=== PATIENT | male | born 2000 | race Two or more races ===

== ENCOUNTER 2024-10-10 19:12 | Emergency (ER) | payer MEDICAID, SELFPAY ==
[2024-10-10 19:14] VITALS: BMI 27.4
[2024-10-10 19:23] VITALS: BP 126/78; PULSE 91; RESP 18; TEMP 37.3; O2SAT 99
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
[2024-10-10 20:51] LABS: Basophils % (Auto) 0 % (0-2.5); Eosinophils # (Auto) 0.1 Thou/mm3 (0.0-0.5); Eosinophils % (Auto) 1 % (0-10); Hematocrit 45.8 % (41.0-53.0); Hemoglobin 16.4 g/dL (13.5-16.0); Immature Granulocytes % (Auto) 0 % (0-0); Immature Granulocytes Auto 0.01 Thou/mm3 (0.00-0.00); Lymphocytes # (Auto) 2.5 Thou/mm3 (1.0-4.8); Lymphocytes % (Auto) 32 % (10-50); Mean Corpuscular HGB Conc 35.8 g/dl (31.0-37.0); Mean Corpuscular Hemoglobin 31.2 pg (25.0-35.0); Mean Corpuscular Volume 87 fL (80-100); Monocytes # (Auto) 0.6 Thou/mm3 (0.0-0.8); Monocytes % (Auto) 8 % (0-12); Neutrophils # (Auto) 4.7 Thou/mm3 (1.8-7.7); Neutrophils % (Auto) 59 % (37-80); Nucleated Red Blood Cell % 0 /100 WBC (0); Platelet Count 273 Thou/mm3 (140-440); RDW Standard Deviation 36.9 fL (35.1-43.9); Red Blood Count 5.26 Miln/mm3 (4.50-5.90)
[2024-10-10 21:04] LABS: Alanine Aminotransferase 31 U/L (10-49); Albumin, Serum 4.8 gm/dL (3.5-5.0); Albumin/Globulin Ratio 1.8 (1.2-2.2); Alkaline Phosphatase 133 U/L (46-116); Anion Gap 7 (7-16); Aspartate Amino Transferase < 10 U/L (0-34); BUN/Creatinine Ratio 16 Ratio (12-20); Bilirubin,Total 0.5 mg/dL (0.3-1.2); Blood Urea Nitrogen 11 mg/dL (9-23); Calcium 9.6 mg/dL (8.3-10.6); Calcium (Corrected) 9.6 mg/dL (8.5-10.1); Chloride 105 mMol/L (98-107); Creatinine (Component) 0.7 mg/dL (0.6-1.3); Estimated Creatinine Clearance 161.8 mL/min (>60); Globulin 2.7 gm/dL (2.3-3.5); Glucose 93 mg/dL (74-106); Osmolality,Calculated 278 (275-295); Potassium 4.1 mMol/L (3.4-5.1); Sodium 140 mMol/L (136-145); Total Protein 7.5 gm/dL (5.7-8.2); eGFR > 60 See Note
[2024-10-10 21:51] VITALS: BP 125/69; PULSE 75; RESP 24; TEMP 37.1; O2SAT 98
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
[2024-10-10] MEDS: ceFAZolin/D5W 1 GM IVPB 1 GM/50 ML BAG IV (23:48)
[2024-10-11 00:05] LABS: Partial Thromboplastin Time 28.6 Seconds (22.0-36.0); Prothrombin Time 11.2 Seconds (9.0-12.2)
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
[2024-10-11 00:25] VITALS: BP 129/74; PULSE 87; RESP 19; TEMP 37.1; O2SAT 98
[2024-10-11] MEDS: SILVER SULFADIAZINE CR 1% 25 GM TUBE TOP (00:32)
[2024-10-11 00:39] VITALS: RESP 18
== END 2024-10-11 00:46 | disposition home or self-care (01) ==
PROVIDERS: Emergency Provider Emergency Medicine
DX: T20.37XA Burn of third degree of neck, initial encounter (principal); T31.0 Burns involving less than 10% of body surface; X18.XXXA Contact with other hot metals, initial encounter
CPT/HCPCS: 36415; 70491; 80053; 85025; 85610; 85730; 86850; 86900; 86901; 96365; 99285; A4649; J0689; Q9967; A9270